=== PATIENT | female | born 1945 | race Hispanic/Latino ===

== ENCOUNTER 2017-01-21 09:20 | Outpatient (CLI) | payer MEDICARE ==
--- NOTE | 2017-01-21 10:55 | Mammography Report ---
BILATERAL MAMMOGRAM: FINDINGS: The breast tissue is heterogeneously dense, which could obscure detection of small masses (approximately 50%-75% glandular). No mass, distortion, suspicious calcification, or skin change is seen. There are no significant changes when compared to prior exams dating back to 2015. CAD was utilized. IMPRESSION: Negative mammogram. There is no mammographic evidence of malignancy. RECOMMENDATION: Follow-up per ACS guidelines. BI-RADS CATEGORY: 1 = Negative ACR BI-RADS MAMMOGRAPHIC CODES: 0 = Needs additional imaging evaluation; 1 = Negative; 2 = Benign; 3 = Probably benign; 4 = Suspicious; 5 = Malignant; 6 = Known biopsy-proven malignancy COMMENT: 1. Dense breast tissue, i.e., adenosis, fibrocystic changes, etc., may obscure an underlying neoplasm. 2. Approximately 10% of cancers are not detected with mammography. 3. A negative mammography report should not delay biopsy if a clinically suspicious mass is present. COMMENT: Patient follow-up letters are generated in [facility].
== END 2017-01-21 09:21 | disposition home or self-care (01) ==
LOC: SPVWC 09:20
PROVIDERS: ATTEND Family Medicine
DX: Z12.31 Encounter for screening mammogram for malignant neoplasm of breast (principal)
CPT/HCPCS: 77067; G0202

== ENCOUNTER 2018-01-27 15:51 | Outpatient (CLI) | payer MEDICARE ==
--- NOTE | 2018-01-27 16:04 | Mammography Report ---
BILATERAL DIGITAL SCREENING MAMMOGRAM with CAD and BILATERAL DIGITAL BREAST TOMOSYNTHESIS (DBT) : 01/27/18 CLINICAL: Routine screening. COMPARISON:01/21/17 FINDINGS: The breasts are heterogeneously dense, which may obscure small masses. Bilateral retroareolar partially circumscribed asymmetries require additional imaging.A right asymmetry is identified on images 28 and 32 of the MLO and CC pradeep images respectively and a left asymmetry is identified on images 32 and 21 of the MLO and CC pradeep images respectively. They are not identified on 2-D images. No architectural distortion or suspicious calcifications. IMPRESSION: Bilateral asymmetries requiring additional workup. BI-RADS CATEGORY: 0 - - Needs Additional Imaging RECOMMENDATION: Recall for bilateral targeted retroareolar breast ultrasound. COMMENT: Patient follow-up letters are generated by our [employer] application.
== END 2018-01-27 15:52 | disposition home or self-care (01) ==
LOC: SPVWC 15:51
PROVIDERS: ATTEND Family Medicine
DX: Z12.31 Encounter for screening mammogram for malignant neoplasm of breast (principal)
CPT/HCPCS: 77063; 77067

== ENCOUNTER 2018-02-18 10:32 | Outpatient (CLI) | payer MEDICARE ==
--- NOTE | 2018-02-18 12:35 | Ultrasound Report ---
BILATERAL BREAST ULTRASOUND: 02/18/18 10:32:00 CLINICAL: Bilateral asymmetries on recent mammogram with tomosynthesis. COMPARISON: 01/27/18 mammogram FINDINGS: Ultrasound of the left breast demonstrated an oval slightly irregular complex cyst with a few relatively large calcifications in the portion of the wall. It measures 1.20 x 0.5 x 0.9 cm and correlates with the echographic asymmetry. Ultrasound of the right breast demonstrated a slightly irregular complex cyst at 9 o'clock measuring 7 x 8 x 4 mm. It correlates with the mammographic asymmetry. A few additional smaller right retroareolar cysts. No solid mass or shadowing. IMPRESSION: Right benign cysts and a probably benign left complex cyst at 12 o'clock subareolar. BI-RADS 3 - - Probably Benign RECOMMENDATION: Six month followup targeted left breast ultrasound to reevaluate the complex subareolar cyst at 12 o'clock.
== END 2018-02-18 10:33 | disposition home or self-care (01) ==
LOC: SPVWC 10:32
PROVIDERS: ATTEND Family Medicine
DX: N60.01 Solitary cyst of right breast (principal)

== ENCOUNTER 2018-08-29 09:47 | Outpatient (CLI) | payer MEDICARE ==
--- NOTE | 2018-08-29 13:15 | Mammography Report ---
LEFT DIGITAL DIAGNOSTIC MAMMOGRAM with CAD: 08/29/18 09:47:00 CLINICAL: Follow-up of a complex left retroareolar cyst. COMPARISON:01/27/18 mammogram and 02/18/18 left breast ultrasound FINDINGS: 2-D mammographic views demonstrated less prominent partially circumscribed retroareolar density. The breast is heterogeneously dense with no mass, architectural distortion or suspicious calcifications. Targeted ultrasound of the subareolar left breast demonstrated an oval mostly anechoic complex cyst at 12 o'clock. It measures slightly smaller at 10 x 9 x 6 mm compared to 12 x 5 x 9 mm. It has a couple of septations and bright reflectors associated with the septations which are not significantly compared to the last exam. IMPRESSION: A benign complex retroareolar cyst without significant change. BI-RADS CATEGORY: 2 -- Benign RECOMMENDATION: Return to routine mammographic screening. ACR BI-RADS MAMMOGRAPHIC CODES: 0 = Needs additional imaging evaluation; 1 = Negative; 2 = Benign; 3 = Probably benign; 4 = Suspicious; 5 = Malignant; 6 = Known biopsy-proven malignancy COMMENT: 1. Dense breast tissue, i.e., adenosis, fibrocystic changes, etc., may obscure an underlying neoplasm. 2. Approximately 10% of cancers are not detected with mammography. 3. A negative mammography report should not delay biopsy if a clinically suspicious mass is present. COMMENT: Patient follow-up letters are generated by our [employer] application.
== END 2018-08-29 09:48 | disposition home or self-care (01) ==
LOC: SPVWC 09:47
PROVIDERS: ATTEND Family Medicine
DX: N60.02 Solitary cyst of left breast (principal)

== ENCOUNTER 2019-03-02 09:51 | Outpatient (CLI) | payer MEDICARE ==
--- NOTE | 2019-03-03 10:34 | Mammography Report ---
BILATERAL DIGITAL SCREENING MAMMOGRAM WITH CAD INDICATION: Routine screening mammography. TECHNIQUE: Digital bilateral 2D mammography was obtained in the craniocaudal and mediolateral obliq ue projections. This examination was interpreted with the benefit of Computer-Aided Detection analysi s. COMPARISON: 01/27/2018 FINDINGS: Breast Density: The breasts are heterogeneously dense, which may obscure small masses. No mass, architectural distortion or suspicious calcifications. IMPRESSION:No mammographic evidence of malignancy. BI-RADS Category 1: Negative. No mammographic evidence of malignancy. Recommend routine screening m ammography in one year. A "normal" or negative report should not discourage follow up or biopsy of a clinically significant f inding. A written summary of these findings will be mailed to the patient. The patient will be entered into a mammography reporting system which will generate a reminder letter for the patient's next appointmen t at the appropriate interval. The [employer] recommends yearly mammograms starting at age 40 and continuing as l matthias as a woman is in good health. Breast MRI is recommended for women with an approximate 20-25% or greater lifetime risk of breast cancer, including women with a strong family history of breast or ova lo cancer or who have been treated for Hodgkin's disease. Signer Name: Dieudonne Roche MD Signed: 03/03/2019 10:29 AM Workstation Name: [id number]
== END 2019-03-02 09:52 | disposition home or self-care (01) ==
LOC: SPVWC 09:51
PROVIDERS: ATTEND Family Medicine
DX: Z12.31 Encounter for screening mammogram for malignant neoplasm of breast (principal)
CPT/HCPCS: 77067